=== PATIENT | male | born 1950 | race Caucasian/White ===

== ENCOUNTER → 2019-01-13 | Outpatient (CLI) | payer OTHER, MEDICARE ==
[~2019-01-13] VITALS: Ht 175.3 cm; Wt 85.3 kg
[~2019-01-13] MED LIST: MULTI VITAMIN1 EACH PO; VITAMIN D32000 UNIT PO
--- NOTE | 2019-01-14 10:48 | P ---
[facility] [place] [address] PROCEDURE REPORT Name: MARIE ERAZO Room #: REG [facility]#: [id number] Admission: 01/13/19 Attend Phys: Manav Huerta MD Discharge: Date of : 48 Report #: [id number] THIS REPORT FOR: //name// CC: CAROLE Huerta OUTPATIENT COLONOSCOPY REPORT BRIEF HISTORY: The patient is a 68-year-old male with a history of colon polyps. 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 He presents today for high risk screening colonoscopy. PREOPERATIVE DIAGNOSIS: History of an advanced adenoma. POSTOPERATIVE DIAGNOSES: 1. Moderate sigmoid diverticulosis coli. 2. Small internal hemorrhoids. MEDICATIONS: Deep sedation with propofol per anesthesia. SPECIMEN: None. ESTIMATED BLOOD LOSS: None. PROCEDURE: Colonoscopy to cecum and terminal ileum. FINDINGS: Prior to propofol sedation, procedure of colonoscopy was discussed with the patient as well as potential risks and its complications. He indicates he understands and desires to proceed. DESCRIPTION OF PROCEDURE: With the patient in left lateral decubitus position, digital examination was completed, which revealed no abnormalities. Subsequently, the Olympus video colonoscope was introduced in the rectum, advanced under direct vision to the cecum. Done with minimal difficulty. The cecum was identified by the ileocecal valve and the appendiceal orifice. I was able to visualize the distal segment of the terminal ileum, which was inspected and noted to be unremarkable. At that point, the scope was slowly withdrawn and careful circumferential views obtained including retroflexion of the scope in the ascending colon. Upon slow withdrawal of the scope, the prep was excellent. The mucosa was within normal limits, normal vascular pattern, and normal light reflex. As we withdrew the scope, no neoplastic lesions were seen. Polyps were not identified on today's examination. He had normal colonic mucosa throughout. In the sigmoid colon, there was moderately severe diverticular disease without endoscopic evidence of diverticulitis. The scope was withdrawn into the rectum and no abnormalities were seen. Upon retroflexion, no abnormalities were seen other than small internal hemorrhoids. The scope was withdrawn. The patient [address] [address] PROCEDURE REPORT Name: ANJU ERAZOKIRBY Lyn [id number] Admission: 01/13/19 Attend Phys: Manav Huerta MD Discharge: Date of : 48 Report #: [id number] tolerated the procedure well. CONDITION OF THE PATIENT UPON DISCHARGE: Following procedure, the patient is drowsy, arousable and conversant and will be discharged to home when fully ambulatory. INSTRUCTIONS TO THE PATIENT AND FAMILY AT THE TIME OF DISCHARGE: No neoplastic lesions were seen. He has a history of an advanced adenoma. We will have him return in 5 years for high risk screening colonoscopy. Last colonoscopy was about 5 years ago. Withdrawal time from the cecum was 8 minutes and 41 seconds. <ELECTRONICALLY SIGNED> By: Manav Huerta MD 01/14/19 1048 [id number] Manav Huerta MD /nt
--- NOTE | 2019-01-14 10:48 | P ---
[facility] [address] [place] [address] PROCEDURE REPORT Name: MARIE ERAZO Room #: REG [facility] M.R.#: [id number] Admission: 01/13/19 Attend Phys: Manav Huerta MD Discharge: Date of : 48 Report #: [id number] THIS REPORT FOR: //name// CC: Edgar Huerta OUTPATIENT COLONOSCOPY REPORT DICTATION ENDS HERE <ELECTRONICALLY SIGNED> By: Manav Huerta MD 01/14/19 1048 0814 1246 Manav Huerta MD /nt
== END | disposition home or self-care (01) ==
LOC: GI 06:58
DX: Z12.11 Encounter for screening for malignant neoplasm of colon (principal); Z86.010 Personal history of colon polyps; K57.30 Diverticulosis of large intestine without perforation or abscess without bleeding; K64.8 Other hemorrhoids; Z98.41 Cataract extraction status, right eye; Z98.42 Cataract extraction status, left eye; Z79.899 Other long term (current) drug therapy; Z98.890 Other specified postprocedural states
CPT/HCPCS: 62110; 62900